=== PATIENT | male | born 1950 | race Caucasian/White ===

== ENCOUNTER → 2016-09-20 | Outpatient (CLI) | payer MEDICARE, OTHER ==
[~2016-09-20] MED LIST: ALPR0.5T11 PO; AMLO5TAB2 PO; ATOR40TA70 PO; BUSPIRONE PO; OLME1TAB19 PO; VENL75TA6 PO; VNL75T PO
[2016-09-20 07:02] LABS: BASOPHILS # (AUTO) 0.1 10^3/uL (0.0-0.1); BASOPHILS % (AUTO) 2 % (0-10); EOSINOPHILS # (AUTO) 0.2 10^3/uL (0.0-0.3); EOSINOPHILS % (AUTO) 3 % (0-10); LYMPHOCYTES # (AUTO) 1.1 X 10^3 (1.0-4.0); LYMPHOCYTES % (AUTO) 19 % (12-44); MEAN CORPUSCULAR HEMOGLOBIN 23 PG (25-34); MEAN CORPUSCULAR HGB CONC 30 G/DL (32-36); MEAN CORPUSCULAR VOLUME 77 FL (80-99); MEAN PLATELET VOLUME 10.5 FL (7.4-10.4); MONOCYTES # (AUTO) 0.7 X 10^3 (0.0-1.0); MONOCYTES % (AUTO) 12 % (0-12); NEUTROPHILS # (AUTO) 3.8 X 10^3 (1.8-7.8); NEUTROPHILS % (AUTO) 66 % (42-75); PLATELET COUNT 267 10^3/uL (130-400); RED BLOOD COUNT 4.68 10^6/uL (4.35-5.85); RED CELL DISTRIBUTION WIDTH 15.5 % (10.0-14.5); RETICULOCYTE % 0.65 % (0.50-2.40); WHITE BLOOD COUNT 5.8 10^3/uL (4.3-11.0)
[2016-09-20 07:32] LABS: BAND NEUTROPHILS 0 %; BASOPHILS % (MANUAL) 0 %; EOSINOPHILS % (MANUAL) 5 %; LYMPHOCYTES % (MANUAL) 22 %; NEUTROPHILS % (MANUAL) 64 %
[2016-09-20 07:33] LABS: HYPOCHROMASIA MODERATE
[2016-09-23 08:30] LABS: FERRITIN 6.0 L NG/ML (25.0-300.0)
== END ==
LOC: LAB 06:44
PROVIDERS: ATTEND Internal Medicine
DX: D64.9 Anemia, unspecified (principal)
CPT/HCPCS: 36415; 82728; 85007; 85045

== ENCOUNTER → 2018-03-19 | Outpatient (CLI) | payer MEDICARE, OTHER | LOC: CARD 08:46 | PROVIDERS: ATTEND Internal Medicine | DX: R00.0 Tachycardia, unspecified (principal) | CPT/HCPCS: 93005 ==

== ENCOUNTER 2021-11-08 12:01 | Outpatient (CLI) | payer MEDICARE, OTHER ==
[~2021-11-08] VITALS: Ht 175.3 cm; Wt 88.9 kg
[2021-11-08] MEDS ORDERED: AMLO-250 PO (14:04)
[2021-11-08] MEDS ORDERED: VNL75T PO (14:04)
[2021-11-08] MEDS ORDERED: OLME-11 PO (14:04)
[2021-11-08] MEDS ORDERED: ASPI-999 PO (14:04)
[2021-11-08] MEDS ORDERED: ATOR40TA70 PO (14:04)
[2021-11-08] MEDS ORDERED: BUSP7.5T5 PO (14:04)
== END 2021-11-08 14:11 | disposition home or self-care (01) ==
LOC: PREOP 12:01
PROVIDERS: ATTEND Internal Medicine
DX: Z01.818 Encounter for other preprocedural examination (principal); Z12.11 Encounter for screening for malignant neoplasm of colon

== ENCOUNTER 2021-11-16 08:09 | Day surgery (SDC) | payer MEDICARE, OTHER ==
--- NOTE | 2021-11-09 11:37 | HISTORY AND PHYSICAL ---
DATE OF SERVICE: COLONOSCOPY HISTORY AND PHYSICAL HISTORY OF PRESENT ILLNESS: The patient is a 71-year-old white male referred by Dr. Diaz for screening colonoscopy. I performed screening colonoscopy 10 years ago, at which time he had moderate diverticular disease confined to the sigmoid colon with no evidence for neoplasia. He is not aware of any family history for colon cancer. He denies bowel habit change, abdominal pain, diarrhea, constipation, bright red blood per rectum or melena. He reports no significant changes in his health status. The only medication change is that he is no longer taking alprazolam because it is not covered under his Medicare policy. 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 He has no known history of coronary artery disease or cerebrovascular disease. MEDICATIONS ON ADMISSION: Benicar HCT 40/25, venlafaxine in the ER 150 daily, amlodipine 5 mg, BuSpar 7.5 mg b.i.d., atorvastatin 40 mg daily. PAST SURGICAL HISTORY: He did have internal fixation of maxillary fracture in 1978 and bilateral inguinal hernia repairs as a child, first at age 1 and the second at age 11 with no reported recurrence. In the last five years, he was admitted for heat exhaustion 4 or 5 years ago. Reports no other hospitalizations. FAMILY HISTORY: Noncontributory. He is not aware of any history of colon cancer, inflammatory bowel disease or colon polyps. 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 REVIEW OF SYSTEMS: CONSTITUTIONAL: Denies night sweats, chills, fever or change in weight. PULMONARY: Denies cough, wheezing or shortness of breath. GASTROINTESTINAL: As noted in the HPI. CARDIOVASCULAR: Denies chest pain, orthopnea, PND, pedal edema or dyspnea on exertion. PHYSICAL EXAMINATION: GENERAL: Reveals an elderly white male, appears to be in no acute distress. VITAL SIGNS: Weight 194 pounds, is down 30 pounds from 10 years ago. Blood pressure 130/76. HEENT: Unremarkable. Mallampati 2 oropharyngeal configuration. CHEST: Clear. CARDIOVASCULAR: Reveals a regular rate and rhythm without murmur, S3 or S4. ABDOMEN: Soft, supple without mass, organomegaly or tenderness. No evidence for abdominal aortic aneurysm is noted. No bruits are appreciated. EXTREMITIES: Reveal no cyanosis, clubbing or edema. ASSESSMENT AND PLAN: The patient is being set up for screening colonoscopy. If he has no evidence for neoplasia on this examination, will not likely be recommending future screening colonoscopy. I thank you for the referral of this pleasant gentleman. Job ID: [id number] DocumentID: [id number] Dictated Date: 10/29/2021 15:00:27 [employer] Date: 10/29/2021 15:15:22 Dictated By: KAREN GUERRA MD MTDD
[~2021-11-16] VITALS: Ht 175 cm; Wt 88.9 kg
[~2021-11-16 08:09] MED LIST changes: +AMLO-250 PO; +ASPI-999 PO; +BUSP7.5T5 PO; +OLME-11 PO
[2021-11-16] MEDS ORDERED: D5 LR IV SOLUTION 1,000 ML IV STA (08:25)
[2021-11-16] MEDS ORDERED: fentaNYL INJ 100 MCG/2 ML AMP IVP ONE (08:30)
[2021-11-16] MEDS ORDERED: LIDOCAINE JELLY 2% 6 ML SYRINGE MM PRN (08:30)
[2021-11-16] MEDS ORDERED: MIDAZOLAM 5 MG/5 ML (VERSED) VIAL IV ONE (08:30)
--- NOTE | 2021-11-16 08:37 | Pre-Op Note & Conscious Sedat ---
Pre-Operative Progress Note Date H&P Reviewed: Nov 16, 2021 Time H&P Reviewed: 08:37 History & Physical: H&P Reviewed, Patient Examed, No changes noted Pre-Op Diagnosis: screening colon Conscious Sedation Pre-Proced ASA Score 2 For ASA 3 and 4: Consider anesthesia and medical clearance. Also, for patients with a history of failed moderate sedation consider anesthesia. Airway Lungs Heart ASA score ASA 1: a normal healthy patient ASA 2: a patient with a mild systemic disease (mid diabetes, controlled hypertension, obesity ASA 3: a patient with a severe systemic disease that limits activity (angina, COPD, prior Myocardial infarction) ASA 4: a patient with an incapacitating disease that is a constant threat to life (CHF, renal failure) ASA 5: a moribund patient not expected to survive 24 hrs. (ruptured aneurysm) ASA 6: a declared brain- patient whose organs are being harvested. For emergent operations, add the letter E after the classification Mallampati Classification Grade 2 Sedation Plan Analgesia, Amnesia, Plan communicated to team members, Discussed options with patient/fam, Discussed risks with patient/fam The patient is an appropriate candidate to undergo the planned procedure, sedation, and anesthesia. The patient immediately re-assessed prior to indication. KAREN GUERRA MD Nov 16, 2021 08:37
[2021-11-16 08:45] VITALS: BP 123/83
[2021-11-16] MEDS ORDERED: PROPOFOL INJECTION 50 ML IV ONE (09:17)
[2021-11-16 10:06] VITALS: BP 85/53
--- NOTE | 2021-11-16 10:09 | Progress Note-Post Operative ---
Post-Procedure Note Physician (s)/Account Support Specialist (s) Physician KAREN GUERRA MD Pre-Procedure Diagnosis Pre-Procedure Diagnosis: screening colon Post-Procedure Diagnosis Post-operative diagnosis: Severe sigmoid and descending colon diverticulosis with prox rectal and splenic flexure polyps ablated with no blood loss KAREN GUERRA MD Nov 16, 2021 10:09
[2021-11-16 10:11] VITALS: BP 89/60
[2021-11-16 10:15] VITALS: BP 102/64
[2021-11-16 10:50] VITALS: BP 102/64
--- NOTE | 2021-11-16 12:30 | Anesthesia-General Post-Op ---
MAC Patient Condition Mental Status/LOC: Same as Preop Cardiovascular: Satisfactory Nausea/Vomiting: Absent Respiratory: Satisfactory Pain: Controlled Complications: Absent Post Op Complications Complications None Follow Up Care/Instructions Patient Instructions None needed. Anesthesiology Discharge Order Discharge Order Patient is doing well, no complaints, stable vital signs, no apparent adverse anesthesia problems. No complications reported per nursing. TARSHA SYED CRNA Nov 16, 2021 12:30
--- NOTE | 2021-11-16 13:44 | OPERATIVE REPORT ---
DATE OF SERVICE: COLONOSCOPY SUMMARY INDICATION FOR THE PROCEDURE: Screening. DESCRIPTION OF PROCEDURE: The patient was placed in the left lateral decubitus position. Prior to undergoing colonoscopy, a digital rectal evaluation was performed. Prostate is small and anodular. No abnormalities were noted on digital inspection of the anal canal or distal rectal vault. The colonoscope was then inserted into the rectum and under direct visualization advanced to the cecum. The cecum was identified by identification of the ileocecal valve and cecal strap. Photographic documentation was obtained. Careful inspection was made as colonoscope was withdrawn. The quality of the prep was fair. FINDINGS: There was no evidence for internal or external hemorrhoids. There were some telangiectatic blood vessels in the anal canal with no evidence for blood. Present in the proximal rectum was a 3 mm sessile adenomatous appearing polyp, which was biopsied and ablated with no subsequent blood loss with hot forceps. Severe diverticular disease confined to the sigmoid and descending colon was present without evidence for diverticulitis on gross inspection. A 4 mm sessile adenomatous appearing polyp was present at the splenic flexure, was biopsied and ablated with no blood loss. The transverse colon, hepatic flexure, ascending colon, and cecum were unremarkable. ASSESSMENT: Two small polyps were removed via hot forceps today, one from the proximal rectum, the other one from the splenic flexure with underlying severe diverticular disease confined to the sigmoid and descending colon. Considering this and the patient's age, as long as there are no surprises on histopathology report, we will not be advocating future screening or surveillance colonoscopy. Job ID: [id number] DocumentID: [id number] Dictated Date: 11/16/2021 10:02:43 [place] Molder Date: 11/16/2021 13:43:41 Dictated By: KAREN GUERRA MD
== END 2021-11-16 10:50 | disposition home or self-care (01) ==
LOC: ENDO 08:09
PROVIDERS: ATTEND Internal Medicine
DX: Z12.11 Encounter for screening for malignant neoplasm of colon (principal); D12.3 Benign neoplasm of transverse colon; D12.8 Benign neoplasm of rectum; K57.30 Diverticulosis of large intestine without perforation or abscess without bleeding; K62.89 Other specified diseases of anus and rectum; Z79.82 Long term (current) use of aspirin